=== PATIENT | male | born 1960 | race Caucasian/White ===

== ENCOUNTER 2016-11-11 17:41 | Emergency (ER) | payer OTHER ==
[2016-11-11 17:54] VITALS: BP 156/98
--- NOTE | 2016-11-11 18:43 | EDM.PDOC ---
ED HPI GENERAL MEDICAL PROBLEM - General Chief Complaint: Skin Complaint Stated Complaint: L HAND INSECT BITE Time Seen by Provider: 11/11/16 17:54 Source of Information: Reports: Patient, RN Notes Reviewed History Limitations: Reports: No Limitations - History of Present Illness INITIAL COMMENTS - FREE TEXT/NARRATIVE: The patient states that he is working night shifts, sleeping during the day. He stayed in a hotel room last night. He states that his hands were dirty before going to bed, so he washed them with the hotel soap. He states that when he woke around 16:30 this afternoon, he found blisters over the dorsal aspects of his left third and fourth MCP joints. He states that they are tender to palpation. He states that he is not working with chemicals at work, and does not recall any trauma to his hand. No prior similar symptoms. The patient's does not have a PCP. He states that he has not undergone a general physical exam for about 10 years. Left Hand Pain Score (Numeric/FACES): 7 - Related Data Allergies Allergy/AdvReac Type Severity Reaction Status Date / Time Penicillins Allergy Cannot Verified 11/11/16 17:49 Remember Home Meds: Home Meds . [No Known Home Meds] 11/11/16 [History] Past Medical History - Past Surgical History HEENT Surgical History: Reports: Oral Surgery (Dental surgery) Neurological Surgical History: Reports: C-Spine (ACDF), Laminectomy, Lumbar Spine (laminectomy), Spinal Fusion Musculoskeletal Surgical History: Reports: Shoulder Surgery (right, open), Other (See Below) (Left Achilles tendon repair) Social & Family History - Tobacco Use Smoking Status *Q: Never Smoker - Caffeine Use Caffeine Use: Reports: Coffee - Alcohol Use Alcohol Use History: Yes Alcohol Use Frequency: Socially - Recreational Drug Use Recreational Drug Use: No - Living Situation & Occupation Living situation: Reports: , Alone 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) ED ROS GENERAL - Review of Systems Review Of Systems: See Below Constitutional: Reports: No Symptoms HEENT: Reports: Other (Recent viral URI symptoms) Respiratory: Reports: No Symptoms Cardiovascular: Reports: No Symptoms Endocrine: Reports: No Symptoms GI/Abdominal: Reports: No Symptoms : Reports: No Symptoms Musculoskeletal: Reports: No Symptoms Skin: Reports: No Symptoms Neurological: Reports: No Symptoms Psychiatric: Reports: No Symptoms Hematologic/Lymphatic: Reports: No Symptoms Immunologic: Reports: No Symptoms ED EXAM, SKIN/RASH Exam: See Below Exam Limited By: No Limitations General Appearance: Alert, WD/WN, No Apparent Distress Extremities: Other (Tense blisters over the dorsal aspect of the left third and fourth MCP joints, with slight erythema at the bases. No other visible lesions. Neurovascular status of the left upper extremity is intact.) Course - Vital Signs Last Recorded V/S: Last Vital Signs Temp 36.3 C 11/11/16 17:50 Pulse 79 11/11/16 17:50 Resp 18 11/11/16 17:50 BP 156/98 H 11/11/16 17:50 Pulse Ox 96 11/11/16 17:50 - Re-Assessments/Exams Free Text/Narrative Re-Assessment/Exam: 11/11/16 18:39 The cause of the patient's left hand blisters is not immediately clear. The differential includes linear IgA bullous dermatosis, porphyria cutanea tarda, and arthropod bite. I believe the patient would be best served if he were to follow-up with a highballer for possible biopsy and likely blood work. The patient states that he will be heading back to [place], [place] tomorrow. I'm recommending that he follow up with a highballer once home. In the meantime, I am recommending that he not intentionally pop the blisters, and if they do pop , to keep the areas clean. Departure - Departure Time of Disposition: 18:41 Disposition: Home, Self-Care 01 Condition: Good Clinical Impression: Blistered skin - Discharge Information Instructions: Blisters Referrals: PCP,None [Primary Care Provider] - Forms: ED Department Discharge Additional Instructions: You were seen in the emergency room for blisters over your left third and fourth knuckle joints. The cause of these blisters is not immediately known, but could include medical issues such as linear IgA bullous dermatosis, porphyria cutanea tarda, or a spider bite. We recommend you not intentionally pop the blisters, however, if they unintentionally pop, to keep them clean with ordinary soap and water. Consider covering with a clean Band-Aid. We recommend you do not apply any ointments or salves to the area. We recommend you follow-up with a [facility] once you return home to [place], [place]. If any other problems, please do not hesitate to return to the ER.
== END 2016-11-11 18:55 | disposition home or self-care (01) ==
LOC: JD.ED 17:41
DX: S60.522A Blister (nonthermal) of left hand, initial encounter (principal); Z88.0 Allergy status to penicillin; X58.XXXA Exposure to other specified factors, initial encounter
CPT/HCPCS: 99282; 99283